=== PATIENT | male | born 1960 | race Caucasian/White ===

== ENCOUNTER → 2018-05-12 | Day surgery (SDC) | payer OTHER ==
[~2018-05-12] MED LIST: CRESTOR10 MG PO; FENTANYL CITRATE/PF 100MCG/2 ML INJ ONE; HYOSCYAMINE SULFATE 0.5 MG/ML INJ ONE; METFORMIN HCL500 MG PO; MIDAZOLAM HCL 2 MG/2 ML VIAL ONE; PROPOFOL IV EMULSION 10 MG/ML 50 ML VIAL ONE
[2018-05-12 13:15] VITALS: BP 118/66
--- NOTE | 2018-05-12 21:26 | Operative Report ---
DATE OF PROCEDURE: 05/12/2018 SURGEON: Montana Beltran MD PROCEDURE: Colonoscopy and polypectomy. INDICATIONS FOR COLONOSCOPY: Colorectal cancer screening, history of bright-red blood per rectum. MEDICATION: The patient was done under MAC, please see anesthesiologist's note. PROCEDURE IN DETAIL: With the patient in the left lateral decubitus position, flexible fiberoptic Olympus colonoscope was inserted into the rectum with ease and advanced all the way to the cecum. Mucosa overlying the cecum appeared to be within normal limits. A minute polyp was hot biopsied from the ascending colon. The transverse and descending appeared to be within normal limits. Three polyps were hot biopsied from the sigmoid colon. Two polyps were hot biopsied from the rectum. There were some focal areas of intense erythema and low-grade edema in the mid rectum that was biopsied. The scope was then retroflexed into the distal rectum. Large internal hemorrhoids were noted without active bleeding. Also some external hemorrhoids were noted on the way out. The patient tolerated the procedure well. IMPRESSION: 1. Ascending colon polyp, hot biopsied. 2. Sigmoid colon polyps x3, hot biopsied. 3. Rectal polyps x2, hot biopsied. 4. Large internal hemorrhoids. PLAN: Followup histology. Initiate high-fiber, low-fat diet. Initiate high-fiber supplement. The patient would need a general surgical opinion regarding hemorrhoidectomy. The patient might benefit from a followup colonoscopy in 3 years. Montana Beltr[address] MD [facility] [place]/[facility]FF[facility] /[id number] cc: DO Juancarlos Prieto MD
== END | disposition home or self-care (01) ==
LOC: OR 07:32
PROVIDERS: ATTEND Internal Medicine Gastroenterology
DX: Z12.11 Encounter for screening for malignant neoplasm of colon (principal); K63.5 Polyp of colon; K62.1 Rectal polyp; K92.1 Melena; K64.8 Other hemorrhoids; K64.4 Residual hemorrhoidal skin tags; E66.9 Obesity, unspecified; I10 Essential (primary) hypertension; E11.9 Type 2 diabetes mellitus without complications; Z01.810 Encounter for preprocedural cardiovascular examination; Z79.84 Long term (current) use of oral hypoglycemic drugs; Z68.33 Body mass index [BMI] 33.0-33.9, adult
CPT/HCPCS: 36415; 45380; 45384; 82948; 93005; J1980; J2250; J2704; 45378